=== PATIENT | female | born 1970 | race American Indian/Alaskan Native ===

== ENCOUNTER 2020-03-19 13:39 | Emergency (ER) | payer SELFPAY ==
--- NOTE | 2020-03-19 14:17 | XRay Report ---
RIGHT HAND 3 VIEWS INDICATION / CLINICAL INFORMATION: pain and swelling. COMPARISON: None available. FINDINGS: No fracture, dislocation or soft tissue swelling is seen within the right hand. The joint spaces are well preserved. Signer Name: Jonathan Aguilar MD Signed: 03/19/2020 2:13 PM Workstation Name: [id number]
[2020-03-19 14:59] VITALS: BP 133/88
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
== END 2020-03-19 16:01 | disposition home or self-care (01) ==
LOC: ED 13:39
DX: S63.632A Sprain of interphalangeal joint of right middle finger, initial encounter (principal); W23.0XXA Caught, crushed, jammed, or pinched between moving objects, initial encounter; Y93.89 Activity, other specified; Y92.89 Other specified places as the place of occurrence of the external cause; Y99.8 Other external cause status
CPT/HCPCS: 99283